=== PATIENT | male | born 1955 | race Caucasian/White ===

== ENCOUNTER 2018-07-11 14:37 | Outpatient (CLI) | payer OTHER | END 2018-07-11 14:38 | disposition home or self-care (01) | LOC: RT 14:37 | PROVIDERS: ATTEND Internal Medicine Gastroenterology | DX: I10 Essential (primary) hypertension (principal) | CPT/HCPCS: 93005 ==

== ENCOUNTER 2018-07-20 08:26 | Day surgery (SDC) | payer OTHER ==
[2018-07-20] MEDS ORDERED: LACTATED RINGERS 1,000 ML IV ONE ×2 (09:24→09:52)
[2018-07-20] MEDS ORDERED: fentaNYL 250 MCG/5 ML VIAL IVP ONE (10:03)
[2018-07-20] MEDS ORDERED: MIDAZOLAM 2 MG/2 ML VIAL IVP ONE (10:03)
[2018-07-20 11:34] VITALS: BP 119/81
== END 2018-07-20 08:27 | disposition home or self-care (01) ==
LOC: SDS 08:26
PROVIDERS: ATTEND Internal Medicine Gastroenterology
PROC: 0DJD8ZZ Inspection of Lower Intestinal Tract, Via Natural or Artificial Opening Endoscopic (ICD-10-PCS; principal; 2018-07-20 09:45)
DX: Z12.11 Encounter for screening for malignant neoplasm of colon (principal); I10 Essential (primary) hypertension; E78.5 Hyperlipidemia, unspecified
CPT/HCPCS: 45378; J3010; J7120

== ENCOUNTER 2018-09-25 09:28 | Outpatient (CLI) | payer OTHER | END 2018-09-25 09:29 | disposition home or self-care (01) | LOC: SC 09:28 | PROVIDERS: ATTEND Internal Medicine Pulmonary Disease | DX: R06.81 Apnea, not elsewhere classified (principal); G47.10 Hypersomnia, unspecified; G47.8 Other sleep disorders; R06.83 Snoring; R41.89 Other symptoms and signs involving cognitive functions and awareness; F51.04 Psychophysiologic insomnia; G47.9 Sleep disorder, unspecified | CPT/HCPCS: 99203; 99212 ==

== ENCOUNTER 2018-10-07 20:39 | Outpatient (CLI) | payer OTHER | END 2018-10-07 20:40 | disposition home or self-care (01) | LOC: SC 20:39 | PROVIDERS: ATTEND Internal Medicine Pulmonary Disease | DX: G47.33 Obstructive sleep apnea (adult) (pediatric) (principal); G47.61 Periodic limb movement disorder | CPT/HCPCS: 95810 ==

== ENCOUNTER 2018-10-26 08:13 | Outpatient (CLI) | payer OTHER | END 2018-10-26 08:14 | disposition home or self-care (01) | LOC: SC 08:13 | PROVIDERS: ATTEND Nurse Practitioner Family | DX: G47.33 Obstructive sleep apnea (adult) (pediatric) (principal); G47.61 Periodic limb movement disorder | CPT/HCPCS: 99212; 99214 ==

== ENCOUNTER 2019-02-12 08:34 | Outpatient (CLI) | payer OTHER | END 2019-02-12 08:35 | disposition home or self-care (01) | LOC: SC 08:34 | PROVIDERS: ATTEND Nurse Practitioner Family | DX: G47.33 Obstructive sleep apnea (adult) (pediatric) (principal) | CPT/HCPCS: 99212; 99214 ==

== ENCOUNTER 2019-05-17 08:17 | Outpatient (CLI) | payer OTHER ==
[2019-05-17 09:10] VITALS: BP 120/70
--- NOTE | 2019-05-17 09:10 | SLEEP CARE CONSULTATION ---
Information from patient questionnaire entered by Zahida Gamble. I have reviewed and concur with the information entered by Zahida Gamble. This document represents the service I personally performed and the decisions made by me, Rosa Salazar, RN, MSN, [employer]. History of Present Illness Previous diagnosis: Severe, Obstructive Sleep Apnea-Hypopnea Syndrome AHI: 30.2 Reason for CPAP/BiPAP follow up: three month Accompanied by: Spouse Equipment type: CPAP Equipment obtained from: [facility] Mask style: Nasal (Dreamwear nasal mask.) Mask brand: Respironics Backup mask available: Yes Last cushion change: 3 weeks ago HPI additional information: Patient had to call here to have pressure adjusted by this office as they were not able to complete due to insurance negotiations. Patient now is able to get supplies for the next year. He has stopped using the Afrin and used saline nasal spray instead. This is working for his nasal congestion. CPAP Compliance Data - Data Reviewed with Patient Average duration of nightly device use: 7.25 Compliance rate %: 100 (90 days) Current pressure setting (cmH2O): 7-10 Humidity settin Heated hose settin Average residual AHI: 2.0 Average large leak: 1 second Subjective Patient concerns: reports: nasal congestion (much better since using saline prior to CPAP). denies: aerophagia, mask discomfort, air blowing in eyes, mask leak noise, condensation in mask/hose, dry mouth, nose, throat, epistaxis Observed to snore while using device: No Current pressure setting perceived as: comfortable On therapy, patient: reports: sleeping better, awakening more refreshed, being more awake and alert during the day, more rested overall. denies: drowsiness while driving Initial [place] Sleepiness Scale score: 5 Current [place] Sleepiness Scale score: 4 Allergies and Home Medications Known drug allergies: No Home medication list reviewed: Yes Allergy and home medication list: Lisinopril 5mg tab one daily Pravastatin 40mg tab one daily Meloxicam 15mg tab one daily Terazosin 10mg cap one daily Amitriptyline 50mg tab one daily Review of Systems Review of systems same as previous: Yes Physical Exam Blood Pressure: 120/70 Cuff size: regular Height: 5 ft 8 in Weight (kg): 190 lb 6.4 oz Body Mass Index: 28.9 BMI Classification: Overweight Impression and Plan 1. Obstructive Sleep Apnea-Hypopnea Syndrome, severe, with good treatment compliance and good apnea control. On CPAP therapy, the patient has better sleep quality and is more rested overall. He has found that the use of saline nasal spray is sufficient for nasal congestion relief prior to CPAP inplace of Afrin. Since he has not been getting reminder calls of when he can get supplies, I reviewed the supply replacement list given and discussed rationale for changing. I also reviewed a cleaning schedule handout given. He had questions about a cleaning device he researched to see if would work for home use due to water contamination at his home and advised to contact [employer] customer service for input. Patient's apnea severity and rationale for treatment to reduce apnea, improve sleep quality and reduce cardiovascular and cerebrovascular events was reviewed. I also reviewed the benefit of consistent device use of CPAP for hypertension. We discussed BMI and he was unaware he was overweight. I discussed the goal of proper weight for overall health and especially to keep gut weight down. * Continue CPAP pressure at 7-11 cmH2O * Contact [employer] re cleaning device. * Notify me if snoring with mask or feeling that the pressure is too much or too little * Attempt to lose weight * Return for follow up in 6 months , or sooner if concerns arise I spent 100% of this 28 minute visit face to face with the patient with greater than 50% of this was spent time counseling the patient and coordination of care.
== END 2019-05-17 08:18 | disposition home or self-care (01) ==
LOC: SC 08:17
PROVIDERS: ATTEND Nurse Practitioner Family
DX: G47.33 Obstructive sleep apnea (adult) (pediatric) (principal)
CPT/HCPCS: 99212; 99214